=== PATIENT | female | born 1970 ===

== ENCOUNTER 2020-05-09 09:30 | Inpatient (IN) | payer OTHER ==
[~2020-05-09] VITALS: Ht 160 cm; Wt 83.9 kg
[2020-05-09] MEDS ORDERED: SYNTHROID125 MCG PO (12:20)
[2020-05-18] MEDS ORDERED: OXYC1TAB9 PO (07:39)
[2020-05-18] MEDS ORDERED: IBU600 MG PO (07:39)
== END 2020-05-18 10:01 | disposition home or self-care (01) | DRG 743 ==
LOC: O/R 05-16 08:41 → SURG-SUITE 05-16 08:41 → SURH 05-16 09:30 → SURG-SUITE 05-16 15:34
PROVIDERS: ADMIT Obstetrics & Gynecology Gynecology; ATTEND Obstetrics & Gynecology Gynecology
PROC: 0DNW0ZZ Release Peritoneum, Open Approach (ICD-10-PCS; 2020-05-16)
PROC: 0UT20ZZ Resection of Bilateral Ovaries, Open Approach (ICD-10-PCS; 2020-05-16)
PROC: 0UT90ZZ Resection of Uterus, Open Approach (ICD-10-PCS; principal; 2020-05-16 15:30)
PROC: 0UT70ZZ Resection of Bilateral Fallopian Tubes, Open Approach (ICD-10-PCS; 2020-05-16 15:30)
DX: D25.1 Intramural leiomyoma of uterus (principal); D25.2 Subserosal leiomyoma of uterus; D25.0 Submucous leiomyoma of uterus; Z20.828 Contact with and (suspected) exposure to other viral communicable diseases; N73.6 Female pelvic peritoneal adhesions (postinfective)